=== PATIENT | female | born 1935 | race Two or more races ===

== ENCOUNTER 2020-03-16 11:58 | Inpatient (IN) | payer OTHER ==
[~2020-03-16] VITALS: Ht 162.6 cm; Wt 67.1 kg
[2020-03-16] MEDS ORDERED: methylPREDNISolone SOD SUCC 125 MG/2 ML VL IV ONE (12:30)
[2020-03-16 13:56] LABS: Basophils # (auto) 0 10 ^3/uL (0-0.2); Basophils % (auto) 0.5 % (0.0-2.0); Eosinophils # (auto) 0 10 ^3/uL (0-0.8); Eosinophils % (auto) 0.1 % (0.0-7.0); Hematocrit 39.7 % (36.0-46.0); Hemoglobin 13.5 g/dL (12.2-16.2); Lymphocytes # (auto) 0.8 10 ^3/uL (0.4-5.4); Lymphocytes % (auto) 7.8 % (10.0-50.0); Mean Corpuscular Hemoglobin 32.4 pg (28.0-32.0); Mean Corpuscular Hgb Conc. 33.9 g/dL (32.0-36.0); Mean Corpuscular Volume 95.6 fL (80.0-100.0); Monocytes # (auto) 0.6 10 ^3/uL (0-1.3); Monocytes % (auto) 6.1 % (0.0-12.0); Neutrophils # (auto) 8.3 10 ^3/uL (1.6-8.6); Neutrophils % (auto) 85.5 % (37.0-80.0); Nucleated Red Blood Cells % 0.1 %; Platelet Count (auto) 242 10^3/uL (140-450); Red Blood Cells 4.16 10^6/uL (4.0-5.20); Red Cell Distribution Width 16.2 % (11.8-14.3); White Blood Cell 9.7 10^3/uL (4.4-10.8)
[2020-03-16 14:13] LABS: Albumin 3.1 g/dL (3.4-5.0); Calcium 9.9 mg/dL (8.5-10.1); Potassium 4.6 mmol/L (3.5-5.1)
[2020-03-16 14:17] LABS: CRP High Sensitivity 0.46 mg/dL (< 0.3); Magnesium 2.3 mg/dL (1.6-2.6)
[2020-03-16 14:19] LABS: BUN/Creatinine Ratio 21.8; Bilirubin, Total 1.3 mg/dL (0.2-1.0)
[2020-03-16] MEDS ORDERED: dilTIAZem 25 MG/5 ML VIAL IV ONE (14:45)
[2020-03-16] MEDS ORDERED: FUROSEMIDE 40 MG/4 ML VIAL IV ONE (15:15)
[2020-03-16] MEDS ORDERED: ONDANSETRON HCL 4 MG/2 ML VIAL IV PRN (15:45)
[2020-03-16] MEDS ORDERED: NITROGLYCERIN 0.2MG/HR TOPICAL PATCH TD ONE (15:45)
[2020-03-16] MEDS ORDERED: NITROGLYCERIN 0.4 MG SL TAB SL PRN (15:45)
[2020-03-16] MEDS ORDERED: HYDROcodone-ACET 5/325MG TAB PO PRN (15:45)
[2020-03-16] MEDS ORDERED: MORPHINE SULF INJ 2 MG/ML SYRINGE 1ML IV PRN ×2 (15:45)
[2020-03-16] MEDS ORDERED: ACETAMINOPHEN 500 MG TAB PO PRN (15:45)
[2020-03-16] MEDS ORDERED: DIGOXIN (250MCG/ML) 2 ML AMPULE IV ONE (16:30)
[2020-03-16] MEDS: dilTIAZem HCL 60 MG TAB PO SCH (18:23)
[2020-03-16] MEDS: ATORVASTATIN 20 MG TAB PO SCH (23:12)
[2020-03-17] MEDS: dilTIAZem HCL 60 MG TAB PO SCH ×5 (00:08→23:31)
[2020-03-17 04:54] VITALS: BP 148/87
[2020-03-17 07:43] LABS: Basophils # (auto) 0 10 ^3/uL (0-0.2); Basophils % (auto) 0.1 % (0.0-2.0); Eosinophils # (auto) 0 10 ^3/uL (0-0.8); Hematocrit 37.3 % (36.0-46.0); Hemoglobin 12.8 g/dL (12.2-16.2); Lymphocytes # (auto) 0.5 10 ^3/uL (0.4-5.4); Lymphocytes % (auto) 7.6 % (10.0-50.0); Mean Corpuscular Hemoglobin 32.6 pg (28.0-32.0); Mean Corpuscular Hgb Conc. 34.3 g/dL (32.0-36.0); Mean Corpuscular Volume 95.1 fL (80.0-100.0); Monocytes # (auto) 0.4 10 ^3/uL (0-1.3); Monocytes % (auto) 6.1 % (0.0-12.0); Neutrophils % (auto) 86.2 % (37.0-80.0); Platelet Count (auto) 226 10^3/uL (140-450); Red Blood Cells 3.92 10^6/uL (4.0-5.20); Red Cell Distribution Width 15.7 % (11.8-14.3)
[2020-03-17 08:00] VITALS: BP 132/74
[2020-03-17 08:04] LABS: BUN/Creatinine Ratio 22.7; Calcium 9.4 mg/dL (8.5-10.1); Potassium 4.6 mmol/L (3.5-5.1)
[2020-03-17 08:21] LABS: INR 1.34 (0.9-1.15); Partial Thromboplastin Time 28.8 sec (23.0-31.2)
[2020-03-17] MEDS ORDERED: LIDOCAINE 2%HCL (LOCAL ANESTH.) INJ 20ML MDV ONE (08:38)
[2020-03-17] MEDS ORDERED: IODIXANOL 320MG/ML 100ML BTL IV ONE (08:38)
[2020-03-17 08:45] LABS: Cholesterol 100 mg/dL (< 200); HDL Cholesterol 46 mg/dL (40-59); LDL Cholesterol 54 mg/dL (< 100); Triglycerides 54 mg/dL (< 150)
[2020-03-17] MEDS ORDERED: ANGIOMAX 250 MG VIAL IV ONE (09:11)
[2020-03-17] MEDS ORDERED: ATROPINE SULF 1 MG/10ml SYR ONE (09:11)
[2020-03-17] MEDS ORDERED: MIDAZOLAM HCL 1MG/1ML-2 ML VIAL ONE (09:12)
[2020-03-17] MEDS ORDERED: fentaNYL CITRATE 100 MCG/2 ML VL ONE (09:12)
[2020-03-17] MEDS ORDERED: SODIUM CHL 0.9% 0 ML ONE (09:12)
[2020-03-17] MEDS ORDERED: DIGOXIN 0.125 MG TAB PO ONE (10:00)
[2020-03-17] MEDS: ASPirin-EC 81 mg tab PO SCH (10:49)
[2020-03-17] MEDS: FUROSEMIDE 20 MG/2 ML VIAL IV SCH (10:49)
[2020-03-17] MEDS: FAMOTIDINE 20 MG TAB PO SCH (10:49)
[2020-03-17] MEDS: LISINOPRIL 10 MG TAB PO SCH (10:50)
[2020-03-17] MEDS ORDERED: CITA10TA70 PO (12:31)
[2020-03-17] MEDS ORDERED: LOVA20TA4 PO (12:31)
[2020-03-17] MEDS ORDERED: METO25TA5 PO (12:31)
[2020-03-17] MEDS ORDERED: TIOT17SP IN (12:31)
[2020-03-17] MEDS ORDERED: ALBU2TAB4 PO (12:31)
[2020-03-17] MEDS ORDERED: DABI150C5 PO (12:31)
[2020-03-17] MEDS ORDERED: ALBUAER3 IN (12:31)
[2020-03-17] MEDS ORDERED: LOSA-69 PO (12:31)
[2020-03-17 16:00] VITALS: BP 123/59
[2020-03-17] MEDS: ATORVASTATIN 20 MG TAB PO SCH (21:32)
[2020-03-17 22:00] VITALS: BP 156/78
[2020-03-17 23:00] VITALS: BP 143/87
[2020-03-18 05:00] VITALS: BP 156/68
[2020-03-18] MEDS: dilTIAZem HCL 60 MG TAB PO SCH ×3 (05:36→18:06)
[2020-03-18 07:45] VITALS: BP 152/80
[2020-03-18] MEDS: LISINOPRIL 10 MG TAB PO SCH (09:50)
[2020-03-18] MEDS: FAMOTIDINE 20 MG TAB PO SCH (09:51)
[2020-03-18] MEDS: ASPirin-EC 81 mg tab PO SCH (09:51)
[2020-03-18] MEDS: FUROSEMIDE 20 MG/2 ML VIAL IV SCH (09:51)
[2020-03-18 15:45] VITALS: BP 132/74
[2020-03-18] MEDS: ATORVASTATIN 20 MG TAB PO SCH (22:36)
[2020-03-19] VITALS: BP 144/77
[2020-03-19] MEDS: dilTIAZem HCL 60 MG TAB PO SCH ×5 (00:25→22:57)
[2020-03-19 05:00] VITALS: BP 135/76
[2020-03-19 08:00] VITALS: BP 157/94
[2020-03-19] MEDS: FUROSEMIDE 20 MG/2 ML VIAL IV SCH (10:27)
[2020-03-19] MEDS: ASPirin-EC 81 mg tab PO SCH (10:27)
[2020-03-19] MEDS: LISINOPRIL 10 MG TAB PO SCH (10:28)
[2020-03-19] MEDS: FAMOTIDINE 20 MG TAB PO SCH (10:28)
[2020-03-19] MEDS ORDERED: IOHEXOL 350 MG/ML 100ML IJ ONE (13:35)
[2020-03-19 15:50] VITALS: BP 143/73
[2020-03-19] MEDS ORDERED: ENOXAPARIN SOD 80 MG/0.8ML SYRINGE SC ONE (19:30)
[2020-03-19] MEDS ORDERED: METOPROLOL SUCCINATE XL 50 MG TAB PO ONE (19:45)
[2020-03-19] MEDS: PRADAXA 110 MG PO SCH (21:11)
[2020-03-19] MEDS: ATORVASTATIN 20 MG TAB PO SCH (21:12)
[2020-03-19 22:00] VITALS: BP 129/71
[2020-03-20 05:00] VITALS: BP 151/100
[2020-03-20] MEDS: dilTIAZem HCL 60 MG TAB PO SCH ×4 (06:00→23:37)
[2020-03-20 07:32] VITALS: BP 132/82
[2020-03-20] MEDS ORDERED: METOPROLOL TARTRATE 1MG/1ML-5ML VIAL IV ONE (09:30)
[2020-03-20] MEDS: PRADAXA 110 MG PO SCH ×2 (10:00→22:00)
[2020-03-20] MEDS: FUROSEMIDE 20 MG/2 ML VIAL IV SCH (10:00)
[2020-03-20] MEDS: ASPirin-EC 81 mg tab PO SCH (10:00)
[2020-03-20] MEDS: FAMOTIDINE 20 MG TAB PO SCH (10:00)
[2020-03-20] MEDS: ENOXAPARIN SOD 80 MG/0.8ML SYRINGE SC SCH ×2 (10:00→20:28)
[2020-03-20] MEDS: LISINOPRIL 10 MG TAB PO SCH (11:30)
[2020-03-20] MEDS: AMIODARONE HCL 200 MG TAB PO SCH ×2 (13:35→20:27)
[2020-03-20 16:30] VITALS: BP 104/51
[2020-03-20] MEDS: MAGNESIUM SULFATE 1GM/100ML 100 ML IV SCH ×4 (17:48→20:29)
[2020-03-20] MEDS: ATORVASTATIN 20 MG TAB PO SCH (20:27)
[2020-03-20 22:05] VITALS: BP 123/68
[2020-03-21] MEDS ORDERED: METOPROLOL TARTRATE 50 MG TAB PO ONE (00:15)
[2020-03-21 05:00] VITALS: BP 126/82
[2020-03-21] MEDS: AMIODARONE HCL 200 MG TAB PO SCH ×3 (06:45→22:20)
[2020-03-21 08:00] VITALS: BP 123/78
[2020-03-21] MEDS: ASPirin-EC 81 mg tab PO SCH (08:48)
[2020-03-21] MEDS: FAMOTIDINE 20 MG TAB PO SCH (08:49)
[2020-03-21] MEDS: METOPROLOL TARTRATE 50 MG TAB PO SCH ×2 (08:49→22:19)
[2020-03-21] MEDS: ENOXAPARIN SOD 80 MG/0.8ML SYRINGE SC SCH ×2 (08:50→22:20)
[2020-03-21] MEDS: LISINOPRIL 10 MG TAB PO SCH (08:50)
[2020-03-21] MEDS: PRADAXA 110 MG PO SCH (10:00)
[2020-03-21] MEDS: FUROSEMIDE 20 MG/2 ML VIAL IV SCH (10:36)
[2020-03-21 16:00] VITALS: BP 132/52
[2020-03-21 22:00] VITALS: BP 144/98
[2020-03-21] MEDS: ATORVASTATIN 20 MG TAB PO SCH (22:20)
[2020-03-22] VITALS: BP 135/47
[2020-03-22 05:12] VITALS: BP 112/72
[2020-03-22] MEDS: AMIODARONE HCL 200 MG TAB PO SCH ×2 (05:30→15:11)
[2020-03-22 08:00] VITALS: BP 128/60
[2020-03-22] MEDS: ASPirin-EC 81 mg tab PO SCH (10:52)
[2020-03-22] MEDS: FUROSEMIDE 20 MG/2 ML VIAL IV SCH (10:52)
[2020-03-22] MEDS: FAMOTIDINE 20 MG TAB PO SCH (10:53)
[2020-03-22] MEDS: METOPROLOL TARTRATE 50 MG TAB PO SCH (10:53)
[2020-03-22] MEDS: LISINOPRIL 10 MG TAB PO SCH (10:54)
[2020-03-22] MEDS: ENOXAPARIN SOD 80 MG/0.8ML SYRINGE SC SCH (10:54)
[2020-03-22 15:46] VITALS: BP 124/60
[2020-03-22 16:00] VITALS: BP 129/57
== END 2020-03-22 18:02 | disposition home health service (06) | DRG 280 ==
LOC: ER 11:58 → EDBD 11:58 → TELE 15:41 → TELE-CENTR 03-17 04:05 → TELE-EAST 03-21 23:45
PROVIDERS: ADMIT Nurse Practitioner Acute Care; ATTEND Family Medicine
PROC: 4A023N7 Measurement of Cardiac Sampling and Pressure, Left Heart, Percutaneous Approach (ICD-10-PCS; principal; 2020-03-17)
PROC: B211YZZ Fluoroscopy of Multiple Coronary Arteries using Other Contrast (ICD-10-PCS; 2020-03-17)
PROC: B215YZZ Fluoroscopy of Left Heart using Other Contrast (ICD-10-PCS; 2020-03-17)
DX: I21.4 Non-ST elevation (NSTEMI) myocardial infarction (principal); I50.43 Acute on chronic combined systolic (congestive) and diastolic (congestive) heart failure; J96.21 Acute and chronic respiratory failure with hypoxia; E44.0 Moderate protein-calorie malnutrition; D68.59 Other primary thrombophilia; J44.1 Chronic obstructive pulmonary disease with (acute) exacerbation; I48.20 Chronic atrial fibrillation, unspecified; N17.9 Acute kidney failure, unspecified; I13.0 Hypertensive heart and chronic kidney disease with heart failure and stage 1 through stage 4 chronic kidney disease, or unspecified chronic kidney disease; N18.31 Chronic kidney disease, stage 3a; Z20.822 Contact with and (suspected) exposure to COVID-19; E78.5 Hyperlipidemia, unspecified; E78.00 Pure hypercholesterolemia, unspecified; I25.10 Atherosclerotic heart disease of native coronary artery without angina pectoris; Z79.899 Other long term (current) drug therapy; Z87.891 Personal history of nicotine dependence; Z90.710 Acquired absence of both cervix and uterus; Z99.81 Dependence on supplemental oxygen; Z90.49 Acquired absence of other specified parts of digestive tract
CPT/HCPCS: 36415; 36600; 71045; 76604; 80048; 80053; 80061; 82565; 82728; 82805; 83735; 83880; 84443; 84484; 85025; 85379; 85610; 85730; 86141; 87426; 93005; 93306; 93458; 99152; 99291; G0378; J2250; Q9967

== ENCOUNTER 2020-05-04 15:41 | Inpatient (IN) | payer OTHER ==
[~2020-05-04] VITALS: Ht 162.6 cm; Wt 55.2 kg
[~2020-05-04 15:41] MED LIST: ALBU2TAB4 PO; ALBUAER3 IN; CITA10TA70 PO; DABI150C5 PO; LOSA-69 PO; LOVA20TA4 PO; METO25TA5 PO; TIOT17SP IN
[2020-05-04] MEDS ORDERED: FUROSEMIDE 40 MG/4 ML VIAL IV ONE (16:00)
[2020-05-04 16:10] LABS: Basophils # (auto) 0.1 10 ^3/uL (0-0.2); Basophils % (auto) 0.7 % (0.0-2.0); Eosinophils # (auto) 0.3 10 ^3/uL (0-0.8); Eosinophils % (auto) 2.7 % (0.0-7.0); Hematocrit 34.9 % (36.0-46.0); Hemoglobin 11.9 g/dL (12.2-16.2); Lymphocytes # (auto) 1.2 10 ^3/uL (0.4-5.4); Lymphocytes % (auto) 12.2 % (10.0-50.0); Mean Corpuscular Hemoglobin 31.9 pg (28.0-32.0); Mean Corpuscular Volume 93.8 fL (80.0-100.0); Monocytes % (auto) 10.7 % (0.0-12.0); Neutrophils # (auto) 7.2 10 ^3/uL (1.6-8.6); Neutrophils % (auto) 73.7 % (37.0-80.0); Platelet Count (auto) 406 10^3/uL (140-450); Red Blood Cells 3.72 10^6/uL (4.0-5.20); Red Cell Distribution Width 15.2 % (11.8-14.3); White Blood Cell 9.8 10^3/uL (4.4-10.8)
[2020-05-04 16:28] LABS: Albumin 2.6 g/dL (3.4-5.0); Calcium 9.8 mg/dL (8.5-10.1); Potassium 5.2 mmol/L (3.5-5.1)
[2020-05-04 16:33] LABS: BUN/Creatinine Ratio 20.9; Bilirubin, Total 0.7 mg/dL (0.2-1.0); Total Protein 6.4 g/dL (6.4-8.2)
[2020-05-04] MEDS ORDERED: InsuLIN REG 1unit/0.01ml Soln (100units/ml) IV ONE (17:00)
[2020-05-04] MEDS ORDERED: SODIUM BICARBONATE 8.4% INJ 50ML SYRINGE IV ONE (17:00)
[2020-05-04] MEDS ORDERED: DEXTROSE (50%) 50ML SYRG IV ONE (17:00)
[2020-05-04] MEDS ORDERED: ALBUTEROL SULF 2.5 MG/0.5ML(0.5%) NEB SOLN NEB ONE (17:00)
[2020-05-04] MEDS ORDERED: CALCIUM GLUC 4.65meq/50ml D5AE 50 ML IV ONE (17:00)
[2020-05-04 17:17] LABS: Urine Bacteria NONE SEEN /hpf (None Seen); Urine Blood Negative /uL (Negative); Urine Mucus FEW (None Seen); Urine Specific Gravity 1.007 (1.001-1.035); Urine WBC <1 /hpf (0 - 5)
[2020-05-04] MEDS ORDERED: FUROSEMIDE 20 MG/2 ML VIAL IV ONE (21:00)
[2020-05-04] MEDS ORDERED: SODIUM CHLORIDE 0.9% 500 ML IV ONE (21:00)
[2020-05-04] MEDS ORDERED: VANCOMYCIN PER PHARMACY 0 MG IV SCH (21:00)
[2020-05-04] MEDS ORDERED: PIPERACILLIN-TAZOB 3.375GM 100 ML IV ONE ×2 (21:00→21:15)
[2020-05-04] MEDS ORDERED: ACETAMINOPHEN 325 MG TAB PO PRN (21:15)
[2020-05-04] MEDS ORDERED: NITROGLYCERIN 0.4 MG SL TAB SL PRN (21:15)
[2020-05-04] MEDS ORDERED: ONDANSETRON HCL 4 MG/2 ML VIAL IV PRN (21:15)
[2020-05-04] MEDS ORDERED: MORPHINE SULF INJ 2 MG/ML SYRINGE 1ML IV PRN (21:15)
[2020-05-04] MEDS ORDERED: ALBUTEROL SULF 2.5 MG/0.5ML(0.5%) NEB SOLN NEB PRN (21:15)
[2020-05-04 21:28] LABS: Potassium 3.5 mmol/L (3.5-5.1)
[2020-05-04] MEDS: PRADAXA 110 MG PO SCH (22:00)
[2020-05-04] MEDS ORDERED: METOPROLOL TARTRATE 25 MG TAB PO SCH (22:00)
[2020-05-04] MEDS ORDERED: VANCOMYCIN 1GM/250ML 250 ML IV ONE (22:15)
[2020-05-04 23:25] VITALS: BP 117/41
[2020-05-05] MEDS: FUROSEMIDE 20 MG/2 ML VIAL IV SCH ×2 (06:03→17:55)
[2020-05-05 06:32] LABS: Basophils # (auto) 0.1 10 ^3/uL (0-0.2); Basophils % (auto) 0.8 % (0.0-2.0); Eosinophils # (auto) 0.2 10 ^3/uL (0-0.8); Eosinophils % (auto) 1.9 % (0.0-7.0); Hematocrit 31.7 % (36.0-46.0); Hemoglobin 10.8 g/dL (12.2-16.2); Lymphocytes # (auto) 0.8 10 ^3/uL (0.4-5.4); Lymphocytes % (auto) 7.9 % (10.0-50.0); Mean Corpuscular Hemoglobin 31.8 pg (28.0-32.0); Mean Corpuscular Volume 93.3 fL (80.0-100.0); Monocytes % (auto) 9.3 % (0.0-12.0); Neutrophils # (auto) 8.4 10 ^3/uL (1.6-8.6); Neutrophils % (auto) 80.1 % (37.0-80.0); Platelet Count (auto) 374 10^3/uL (140-450); Red Cell Distribution Width 14.9 % (11.8-14.3); White Blood Cell 10.4 10^3/uL (4.4-10.8)
[2020-05-05 06:49] LABS: Albumin 2.4 g/dL (3.4-5.0); Calcium 9.4 mg/dL (8.5-10.1); Potassium 3.5 mmol/L (3.5-5.1)
[2020-05-05 06:52] LABS: BUN/Creatinine Ratio 16.8; Bilirubin, Total 0.8 mg/dL (0.2-1.0); Total Protein 6.1 g/dL (6.4-8.2)
[2020-05-05] MEDS ORDERED: LOSARTAN POTASSIUM 25 MG TAB PO SCH (10:00)
[2020-05-05] MEDS ORDERED: levoFLOXacin 500MG 100 ML IV SCH (10:00)
[2020-05-05] MEDS: FAMOTIDINE 20 MG TAB PO SCH (10:10)
[2020-05-05] MEDS: ASPirin 81 mg TAB PO SCH (10:13)
[2020-05-05] MEDS: PRADAXA 110 MG PO SCH ×2 (11:09→22:26)
[2020-05-05] MEDS ORDERED: ALBU0.084 NEB (12:28)
[2020-05-05] MEDS ORDERED: DABI1CAP PO (12:28)
[2020-05-05] MEDS ORDERED: FURO40TA4 PO (12:30)
[2020-05-05] MEDS ORDERED: POTA-264 PO (12:30)
[2020-05-05] MEDS ORDERED: BISO5TAB44 PO (12:30)
[2020-05-05] MEDS ORDERED: AMIO200T4 PO (12:31)
[2020-05-05] MEDS ORDERED: FLUT100M IN (12:32)
[2020-05-05] MEDS ORDERED: CALC1CAP3 PO (12:34)
[2020-05-05] MEDS ORDERED: MULT-927 PO (12:34)
[2020-05-05] MEDS ORDERED: ASCO500T11 PO (12:34)
[2020-05-05] MEDS ORDERED: OMEG100078 PO (12:34)
[2020-05-05] MEDS ORDERED: FUROSEMIDE 20 MG/2 ML VIAL IV ONE (13:45)
[2020-05-05] MEDS: PIPERACILLIN-TAZOB 3.375GM 100 ML IV SCH ×2 (14:05→22:26)
[2020-05-05] MEDS ORDERED: VANCOMYCIN 1GM/250ML 250 ML IV SCH (15:00)
[2020-05-05 15:01] VITALS: BP 133/62
[2020-05-05 16:35] VITALS: BP 118/47
[2020-05-05 22:00] VITALS: BP 121/54
[2020-05-05] MEDS: ATORVASTATIN 20 MG TAB PO SCH (22:26)
[2020-05-06 05:00] VITALS: BP 128/52
[2020-05-06] MEDS: PIPERACILLIN-TAZOB 3.375GM 100 ML IV SCH ×3 (05:42→22:08)
[2020-05-06] MEDS: FUROSEMIDE 20 MG/2 ML VIAL IV SCH ×2 (05:49→18:18)
[2020-05-06] MEDS: ASPirin 81 mg TAB PO SCH (10:14)
[2020-05-06] MEDS: FAMOTIDINE 20 MG TAB PO SCH (10:14)
[2020-05-06] MEDS: PRADAXA 110 MG PO SCH ×2 (11:01→22:00)
[2020-05-06] MEDS ORDERED: POTASSIUM EFFERVESENT TAB 25 MEQ PO ONE (19:00)
[2020-05-06 20:00] VITALS: BP 107/56
[2020-05-06 22:00] VITALS: BP 122/54
[2020-05-06] MEDS: ATORVASTATIN 20 MG TAB PO SCH (22:07)
[2020-05-07 05:00] VITALS: BP 128/52
[2020-05-07] MEDS: PIPERACILLIN-TAZOB 3.375GM 100 ML IV SCH ×2 (05:56→14:32)
[2020-05-07] MEDS: FUROSEMIDE 20 MG/2 ML VIAL IV SCH ×2 (05:57→18:15)
[2020-05-07 07:40] LABS: Basophils # (auto) 0.2 10 ^3/uL (0-0.2); Basophils % (auto) 1.7 % (0.0-2.0); Eosinophils # (auto) 0.8 10 ^3/uL (0-0.8); Eosinophils % (auto) 7.2 % (0.0-7.0); Hematocrit 30.7 % (36.0-46.0); Hemoglobin 10.5 g/dL (12.2-16.2); Lymphocytes # (auto) 0.7 10 ^3/uL (0.4-5.4); Lymphocytes % (auto) 6.5 % (10.0-50.0); Mean Corpuscular Hemoglobin 31.8 pg (28.0-32.0); Mean Corpuscular Hgb Conc. 34.1 g/dL (32.0-36.0); Monocytes # (auto) 1.1 10 ^3/uL (0-1.3); Monocytes % (auto) 10.2 % (0.0-12.0); Neutrophils # (auto) 7.8 10 ^3/uL (1.6-8.6); Neutrophils % (auto) 74.4 % (37.0-80.0); Platelet Count (auto) 381 10^3/uL (140-450); Red Cell Distribution Width 14.9 % (11.8-14.3); White Blood Cell 10.5 10^3/uL (4.4-10.8)
[2020-05-07 08:07] LABS: Potassium 3.8 mmol/L (3.5-5.1)
[2020-05-07 08:19] LABS: BUN/Creatinine Ratio 17.6; Calcium 9.3 mg/dL (8.5-10.1)
[2020-05-07 09:00] VITALS: BP 105/45
[2020-05-07] MEDS: ASPirin 81 mg TAB PO SCH (09:08)
[2020-05-07] MEDS: FAMOTIDINE 20 MG TAB PO SCH (09:08)
[2020-05-07] MEDS: PRADAXA 110 MG PO SCH ×2 (09:09→22:39)
[2020-05-07] MEDS ORDERED: predniSONE 20 MG TAB PO ONE (10:30)
[2020-05-07 13:00] VITALS: BP 108/44
[2020-05-07 17:00] VITALS: BP 113/54
[2020-05-07] MEDS: ATORVASTATIN 20 MG TAB PO SCH (22:39)
[2020-05-08] MEDS ORDERED: predniSONE 20 MG TAB PO SCH (10:00)
== END 2020-05-07 22:50 | disposition short-term general hospital (02) | DRG 177 ==
LOC: ER 15:41 → EDBD 15:41 → TELE 21:01 → TELE-CENTR 05-05 14:32
PROVIDERS: ADMIT Nurse Practitioner; ATTEND Internal Medicine Nephrology
DX: J15.6 Pneumonia due to other Gram-negative bacteria (principal); J96.21 Acute and chronic respiratory failure with hypoxia; I50.33 Acute on chronic diastolic (congestive) heart failure; E43 Unspecified severe protein-calorie malnutrition; D68.59 Other primary thrombophilia; E87.4 Mixed disorder of acid-base balance; I11.0 Hypertensive heart disease with heart failure; D64.9 Anemia, unspecified; Z20.822 Contact with and (suspected) exposure to COVID-19; I27.21 Secondary pulmonary arterial hypertension; E87.5 Hyperkalemia; I48.91 Unspecified atrial fibrillation; E03.9 Hypothyroidism, unspecified; J43.9 Emphysema, unspecified; I25.2 Old myocardial infarction; Z79.01 Long term (current) use of anticoagulants; Z79.899 Other long term (current) drug therapy; Z87.01 Personal history of pneumonia (recurrent); Z87.891 Personal history of nicotine dependence; Z90.710 Acquired absence of both cervix and uterus; Z68.20 Body mass index [BMI] 20.0-20.9, adult; Z90.49 Acquired absence of other specified parts of digestive tract
CPT/HCPCS: 36415; 36600; 71045; 71250; 80048; 80053; 81001; 82728; 82805; 83605; 83880; 84132; 84439; 84443; 84484; 85025; 85379; 87040; 87086; 87426; 93005; 93970; 94640; 94644; 96365; 96367; 96375; 96376; 99291; G0378; J0610; J1956; J2405; J2543